=== PATIENT | female | born 1990 | race Caucasian/White ===

== ENCOUNTER 2021-12-28 21:24 | Emergency (ER) | payer OTHER ==
[2021-12-28 21:52] VITALS: BP 118/70; PULSE 61; TEMP 98.6; BMI 34.3
[2021-12-28] MEDS ORDERED: ACETAMINOPHEN 500 MG TABLET (FP) PO ONE (23:13)
[2021-12-28] MEDS ORDERED: ACETAMINOPHEN 325 MG TABLET (FP) ONE (23:21)
== END 2021-12-28 23:29 | disposition home or self-care (01) ==
LOC: JER 21:24
DX: R51.9 Headache, unspecified (principal)
CPT/HCPCS: 93005; 93010; 99283-25